=== PATIENT | male | born 1950 | race Caucasian/White ===

== ENCOUNTER 2017-12-23 13:28 | Emergency (ER) | payer OTHER ==
[~2017-12-23] VITALS: Ht 175.3 cm; Wt 98.0 kg
[~2017-12-23 13:28] MED LIST: ACET325 PO; ALPR.25 PO; AMBI5TAB PO; ASPI81 PO; CLOP75 PO; HYDR-3533 PO; LISI5 PO; METO25 PO; PACE200T4 PO; PROVENTIL HFA INH; TAB-TAB PO; TAMS0.4C67 PO; ZOCO40TA PO
[2017-12-23 14:01] VITALS: BP 163/103; PULSE 78; RESP 16; TEMP 97.7; O2SAT 96
[2017-12-23] MEDS ORDERED: METO25TA3 PO (17:00)
[2017-12-23] MEDS ORDERED: ASPI-516 CHEW (17:00)
[2017-12-23] MEDS ORDERED: ZOCO40TA PO (17:00)
[2017-12-23] MEDS ORDERED: PLAV75TA29 PO (17:00)
[2017-12-23] MEDS ORDERED: LISI2.5T3 PO (17:00)
[2017-12-23] MEDS ORDERED: TAMS5CAP PO (17:00)
[2017-12-23] MEDS ORDERED: ALBU6.7H INH (17:00)
[2017-12-23] MEDS ORDERED: MULTTAB67 PO (17:00)
--- NOTE | 2017-12-23 17:22 | PD ---
HPI Chief Complaint: Foreign Body Time Seen by Provider: 17:01 Travel History International Travel<30 days: No Contact w/Intl Traveler<30days: No Traveled to known affect area: No History of Present Illness HPI This is a 67-year-old male here who lost a bridge consisting of 2 crowns today. He reports at 11 AM this morning he realized his crown was missing he believes he may have ingested it. He has no foreign body sensation or fullness in the throat. He is eating and drinking without difficulty. No chest pain. No cough or wheezing. No abdominal pain. His believes he lost the crown while sleeping & it may be in the house. This has happened in the past. PFSH Past Medical History Arthritis: No Asthma: No Autoimmune Disease: No Anxiety: Yes (This visit about cardiac problems) Depression: No Heart Rhythm Problems: No Cancer: No Cardiac Catheterization: Yes Cardiovascular Problems: Yes (CABG 2013, [place], HIGH CHOLESTEROL) High Cholesterol: Yes Chest Pain: No Congestive Heart Failure: No COPD: No Cerebrovascular Accident: No Coronary Artery Disease: Yes Diabetes: No Endocrine: No Gastrointestinal Disorders: No Glaucoma: No Genitourinary: No Hepatitis: Yes Hypertension: Yes Immune Disorder: No Musculoskeletal: Yes Neurologic: Yes Psychiatric: No Reproductive: No Respiratory: Yes (COPD) Migraines: No Myocardial Infarction: Yes Seizures: No Sleep Apnea: No Thyroid Disease: No Past Surgical History Abdominal Surgery: No Appendectomy: Yes Cardiac Surgery: Yes (STENTS X 2 IN PAST) Coronary Artery Bypass Graft: Yes (2007 4 VESSEL) Coronary Stent: Yes Ear Surgery: No Endocrine Surgery: No Eye Surgery: No Genitourinary Surgery: No Gynecologic Surgery: No Oral Surgery: No Thoracic Surgery: Yes (CABG 2013) Tonsillectomy: Yes Social History Alcohol Use: No Tobacco Use: No (QUIT 2006) Substance Use: No Allergies-Medications (Allergen,Severity, Reaction): Coded Allergies: No Known Allergies (Verified Adverse Reaction, Unknown, 12/23/17) Reported Meds & Prescriptions Reported Meds & Active Scripts Active Reported Zocor (Simvastatin) 40 Mg Tab 40 Mg PO DAILY Proventil Hfa 6.7 GM Inh (Albuterol Sulfate) 90 Mcg/Act Aer 2 Puff INH Q4-6H PRN Multiple Vitamin 1 Tab 1 Tab PO DAILY Plavix (Clopidogrel Bisulfate) 75 Mg Tab 75 Mg PO DAILY Lisinopril 2.5 Mg Tab 2.5 Mg PO DAILY Metoprolol Tartrate 25 Mg Tab 12.5 Mg PO BID Flomax (Tamsulosin HCl) 0.4 Mg Cap 0.4 Mg PO HS Aspirin 81 Mg Chew 81 Mg CHEW DAILY Review of Systems Except as stated in HPI: all other systems reviewed are Neg Physical Exam Narrative GENERAL: Alert well-appearing 67-year-old male SKIN: Warm and dry. HEAD: Normocephalic. EYES: No injection or drainage. MOUTH: Uvula is midline. Airway is patent. No foreign body visualized in the oropharynx. NECK: Supple, trachea midline. CARDIOVASCULAR: Regular rate and rhythm RESPIRATORY: Breath sounds equal bilaterally. No accessory muscle use. GASTROINTESTINAL: Abdomen soft, non-tender, nondistended. Data Data Last Documented VS Vital Signs Date Time Temp Pulse Resp B/P (MAP) Pulse Ox O2 Delivery O2 Flow Rate FiO2 12/23/17 14:01 97.7 78 16 163/103 (123) 96 MDM Medical Decision Making Medical Screen Exam Complete: Yes Emergency Medical Condition: No Differential Diagnosis Possible Ingestive foreign body, medical screening exam Narrative Course This is a 67-year-old male here who lost a bridge consisting of 2 crowns today. He reports at 11 AM this morning he realized his crown was missing he believes he may have ingested them or lost them while he slept. He has no foreign body sensation or fullness in the throat. He is eating and drinking without difficulty. No chest pain. No cough or wheezing. No abdominal pain. His believes he lost the crown while sleeping & it may be in the house. This has happened in the past. The patient was examined. No visible foreign body in the oropharynx. Lungs sounds are equal bilaterally. I do not feel the patient needs any imaging as he is asymptomatic and the foreign body in question is rather small and easily passable. Strict return precautions were discussed. A medical screening exam was performed: At the time of evaluation the presenting medical condition was determined not to be of an emergent nature. The patient was given the option of receiving additional care, but declined. Patient was given options for additional community resources from which to obtain care. The Patient Has Been advised to seek medical attention for their presenting complaint. The patient has been advised to return to the ER at any time if an emergent condition develops. Diagnosis Primary Impression: Encounter for medical screening examination Referrals: Primary Care Physician Additional Instructions: Follow-up the primary doctor. Return to emergency department if he developed shortness of breath, abdominal pain, fever, chills, rectal bleeding Disposition: 01 DISCHARGE HOME Condition: Stable Belinda Hogan Dec 23, 2017 17:22
== END 2017-12-23 17:22 | disposition home or self-care (01) ==
LOC: PHED 13:28 → PHEFT 17:22
DX: T18.9XXA Foreign body of alimentary tract, part unspecified, initial encounter (principal); F41.9 Anxiety disorder, unspecified; E78.00 Pure hypercholesterolemia, unspecified; I25.10 Atherosclerotic heart disease of native coronary artery without angina pectoris; I10 Essential (primary) hypertension; J44.9 Chronic obstructive pulmonary disease, unspecified; Z86.19 Personal history of other infectious and parasitic diseases; Z95.1 Presence of aortocoronary bypass graft; Z87.891 Personal history of nicotine dependence
CPT/HCPCS: 99281